=== PATIENT | female | born 1985 ===

== ENCOUNTER 2016-12-28 09:20 | Day surgery (SDC) | payer BC ==
[2016-12-28 10:19] VITALS: TEMP 97; O2SAT 100
[2016-12-28] MEDS ORDERED: Midazolam 2 MG/2 ML VIAL ONE (11:02)
[2016-12-28] MEDS ORDERED: Propofol 10 mg/ml Inj (20 ML) ONE (11:02)
[2016-12-28] MEDS ORDERED: Lactated Ringer's 500 ML IV ONE (11:10)
[2016-12-28] MEDS ORDERED: ePHEDrine 50 mg/ml Inj ONE (11:13)
[2016-12-28 11:54] VITALS: BP 126/69; PULSE 66; RESP 14
== END 2016-12-28 12:00 | disposition home or self-care (01) ==
LOC: H.ENDO 09:20
PROVIDERS: ATTEND Internal Medicine Gastroenterology
DX: K92.2 Gastrointestinal hemorrhage, unspecified (principal); K64.1 Second degree hemorrhoids; K62.5 Hemorrhage of anus and rectum
CPT/HCPCS: 45378; J2250; J2704; J7120